=== PATIENT | male | born 1965 | race Caucasian/White ===

== ENCOUNTER 2018-04-15 11:33 | Inpatient (IN) | payer OTHER ==
[~2018-04-15] VITALS: Ht 177.8 cm; Wt 122.2 kg
[~2018-04-15 11:33] MED LIST: ADVAIR 500/501 DISK IH; SINGULAIR10 MG PO; SYMBICORT60 INHALAT IH; VENTOLIN HFA18 GM IH
[2018-04-15 14:12] LABS: HEMATOCRIT 46.8 % (38.0-50.0); HEMOGLOBIN 16.4 G/DL (12.5-16.6); MCH 30.5 PG (29.0-34.0); MCV 87.2 FL (86-99); PLATELET COUNT 236 K/uL (156-360); RBC DIS.WIDTH-CV 12.8 % (11.8-14.6); RBC DIS.WIDTH-SD 40.6 % (39-53); RED BLOOD COUNT 5.37 M/uL (4.00-5.50); WHITE BLOOD COUNT 7.4 K/uL (4.1-10.2)
[2018-04-15 14:22] LABS: ALBUMIN 4.3 g/dL (3.2-4.8); CHLORIDE 108 mEq/L (99-109); POTASSIUM 4.3 mEq/L (3.7-5.4); SODIUM 139 mEq/L (136-147)
[2018-04-15 14:24] LABS: GLUCOSE 93 mg/dL (70-99)
[2018-04-15 14:25] LABS: TOTAL PROTEIN 7.2 g/dL (6.4-8.3)
[2018-04-15 14:26] LABS: TOTAL BILIRUBIN 0.3 mg/dL (0.0-1.0)
[2018-04-15 14:28] LABS: ALKALINE PHOSPHATASE 92 IU/L (3-129); CREATININE 0.9 mg/dL (0.6-1.3); GFR ESTIMATE (CALCULATED) > 59 mL/min/ (58.99-99999)
[2018-04-15 14:29] LABS: UREA NITROGEN (BUN) 15 mg/dL (9-23)
[2018-04-15 14:30] LABS: AST (GOT) 18 IU/L (2-34)
[2018-04-15 14:31] LABS: ALT (GPT) 20 IU/L (3-49)
[2018-04-15] MEDS ORDERED: EPIPEN ADU0.3 MG/0.3 IM (15:42)
[2018-04-15] MEDS ORDERED: NORVASC10 MG PO (15:42)
[2018-04-15 16:28] LABS: C-REACTIVE PROTEIN 2.7 MG/L (0-10)
[2018-04-15 17:19] LABS: ERTH.SED.RATE 19 MM/HR (0-20)
[2018-04-15 17:27] VITALS: BP 145/70
[2018-04-15 19:23] VITALS: BP 119/73
[2018-04-15 23:16] VITALS: BP 109/52
[2018-04-16 04:00] VITALS: BP 107/57
[2018-04-16 06:09] LABS: BASOPHIL (%) 0.7 % (0-1); BASOPHIL COUNT 0.1 K/uL (0-0.1); EOSINOPHIL (%) 13.1 % (0-5); EOSINOPHIL COUNT 0.9 K/uL (0-0.3); HEMATOCRIT 42.7 % (38.0-50.0); IMMATURE GRANULOCYTE (%) 0.7 % (0.0-0.7); LYMPHOCYTE (%) 25.4 % (15-42); LYMPHOCYTE COUNT 1.8 K/uL (1.0-2.8); MCHC 33.3 G/DL (30.0-36.0); MCV 90.1 FL (86-99); MONOCYTE (%) 8.9 % (3-12); MONOCYTE COUNT 0.6 K/uL (0-0.8); NEUTROPHIL (%) 51.2 % (45-76); NEUTROPHIL COUNT 3.6 K/uL (1.8-6.4); PLATELET COUNT 212 K/uL (156-360); RBC DIS.WIDTH-CV 12.9 % (11.8-14.6); RBC DIS.WIDTH-SD 42.5 % (39-53); RED BLOOD COUNT 4.74 M/uL (4.00-5.50); WHITE BLOOD COUNT 7.1 K/uL (4.1-10.2)
[2018-04-16 06:10] LABS: HEMOGLOBIN 14.2 G/DL (12.5-16.6)
[2018-04-16 06:21] LABS: CHLORIDE 105 MEQ/L (99-109); GFR ESTIMATE (CALCULATED) > 59 mL/min/ (58.99-99999); GLUCOSE 140 mg/dL (70-99); POTASSIUM 4.7 MEQ/L (3.7-5.4); SODIUM 139 MEQ/L (136-147); UREA NITROGEN (BUN) 17 mg/dL (9-23)
[2018-04-16 08:27] VITALS: BP 135/66
[2018-04-16 11:16] VITALS: BP 112/53
[2018-04-16 15:37] VITALS: BP 114/61
[2018-04-16 19:42] VITALS: BP 105/55
[2018-04-16 19:45] VITALS: BP 148/69
[2018-04-17 01:42] VITALS: BP 125/51
[2018-04-17 02:20] LABS: BASOPHIL (%) 0.9 % (0-1); BASOPHIL COUNT 0.1 K/uL (0-0.1); EOSINOPHIL (%) 11.4 % (0-5); EOSINOPHIL COUNT 0.8 K/uL (0-0.3); HEMATOCRIT 42.7 % (38.0-50.0); HEMOGLOBIN 14.6 G/DL (12.5-16.6); IMMATURE GRANULOCYTE (%) 0.4 % (0.0-0.7); LYMPHOCYTE (%) 29.7 % (15-42); MCH 30.3 PG (29.0-34.0); MCHC 34.2 G/DL (30.0-36.0); MCV 88.6 FL (86-99); MONOCYTE COUNT 0.6 K/uL (0-0.8); NEUTROPHIL (%) 48.6 % (45-76); NEUTROPHIL COUNT 3.3 K/uL (1.8-6.4); PLATELET COUNT 212 K/uL (156-360); RBC DIS.WIDTH-CV 12.7 % (11.8-14.6); RBC DIS.WIDTH-SD 41.3 % (39-53); RED BLOOD COUNT 4.82 M/uL (4.00-5.50); WHITE BLOOD COUNT 6.9 K/uL (4.1-10.2)
[2018-04-17 02:34] LABS: ALBUMIN 3.7 g/dL (3.2-4.8); CHLORIDE 105 mEq/L (99-109); POTASSIUM 4.3 mEq/L (3.7-5.4); SODIUM 142 mEq/L (136-147)
[2018-04-17 02:40] LABS: ALKALINE PHOSPHATASE 84 IU/L (3-129); CREATININE 1.1 mg/dL (0.6-1.3); GFR ESTIMATE (CALCULATED) > 59 mL/min/ (58.99-99999)
[2018-04-17 02:41] LABS: GLUCOSE 97 mg/dL (70-99); TOTAL BILIRUBIN 0.2 mg/dL (0.0-1.0); TOTAL PROTEIN 5.8 g/dL (6.4-8.3); UREA NITROGEN (BUN) 19 mg/dL (9-23)
[2018-04-17 02:42] LABS: AST (GOT) 13 IU/L (2-34)
[2018-04-17 02:43] LABS: ALT (GPT) 17 IU/L (3-49)
[2018-04-17 08:21] VITALS: BP 142/92
[2018-04-17] MEDS ORDERED: BACTRIM,SEPT1 TABLET PO (15:07)
[2018-04-17] MEDS ORDERED: AUGMENTIN875 MG PO (15:07)
[2018-04-17] MEDS ORDERED: IVERMECTIN3 MG PO (15:07)
[2018-04-17 15:53] VITALS: BP 160/88
== END 2018-04-17 16:49 | disposition home or self-care (01) | DRG 603 ==
LOC: EME 11:33 → EDOF 14:57 → 3EAST 14:57 → ENRESERV 15:11 → 3EAST 16:53
PROVIDERS: Hospitalist; Nurse Practitioner Family
PROC: 0H9NXZZ Drainage of Left Foot Skin, External Approach (ICD-10-PCS; principal; 2018-04-16)
DX: L02.612 Cutaneous abscess of left foot (principal); L03.116 Cellulitis of left lower limb; B76.9 Hookworm disease, unspecified; M86.9 Osteomyelitis, unspecified; B35.3 Tinea pedis; I10 Essential (primary) hypertension; J45.909 Unspecified asthma, uncomplicated; F43.10 Post-traumatic stress disorder, unspecified; Z86.14 Personal history of Methicillin resistant Staphylococcus aureus infection
CPT/HCPCS: 73630; 80048; 80053; 80202; 83605; 85025; 85027; 85651; 86140; 87040; 87070; 87075; 87205; 87641; 94640; 94664; 94799; 99281; 99285; J1170; J1650; J2543; J3370; J7040; J7050